=== PATIENT | male | born 1995 | race Caucasian/White ===

== ENCOUNTER 2018-03-13 11:38 | Emergency (ER) | payer BC, MEDICAID ==
[~2018-03-13] VITALS: Ht 653.8 cm; Wt 68.6 kg
[2018-03-13 11:46] VITALS: BP 125/68
[2018-03-13] MEDS ORDERED: AMOX-580 PO (12:36)
== END 2018-03-13 12:48 | disposition home or self-care (01) ==
LOC: ER 11:39
DX: K04.7 Periapical abscess without sinus (principal); Z56.0 Unemployment, unspecified; Z79.2 Long term (current) use of antibiotics
CPT/HCPCS: 99283

== ENCOUNTER 2019-01-03 01:24 | Emergency (ER) | payer MEDICAID, OTHER ==
[~2019-01-03] VITALS: Ht 182.9 cm; Wt 70.0 kg
[2019-01-03 01:46] VITALS: BP 119/61
[2019-01-03 02:25] LABS: CLARITY,URINE CLOUDY (Clear); COLOR,URINE YELLOW (Yellow); GLUCOSE, URINE NEGATIVE (Neg); KETONES,URINE NEGATIVE (Neg); LEUKOCYTE ESTERASE ,URINE NEGATIVE (Neg); NITRITES, URINE NEGATIVE (Neg); OCCULT BLOOD,URINE LARGE (Neg); PROTEIN,URINE NEGATIVE (Neg); UROBILINOGEN,URINE 0.2 E.U/dL (0.2-1.0)
[2019-01-03 02:28] LABS: UA COLLECTION TYPE VOIDED
[2019-01-03 02:43] LABS: BACTERIA,URINE FEW /HPF (Neg); RBC,URINE TNTC /HPF (0-2); SQUAMOUS EPITHELIAL CELL,UR FEW /LPF (FEW); WBC,URINE 0-4 /HPF (0-4)
== END 2019-01-03 03:29 | disposition home or self-care (01) ==
LOC: ER 01:24
DX: R31.9 Hematuria, unspecified (principal); Z56.0 Unemployment, unspecified
CPT/HCPCS: 81001; 99283

== ENCOUNTER 2021-03-09 11:08 | Emergency (ER) | payer MEDICAID ==
[~2021-03-09] VITALS: Ht 185.4 cm; Wt 71.5 kg
[2021-03-09 11:14] VITALS: BP 121/71
[2021-03-09] MEDS ORDERED: azithromycin 250mg tablet PO ONE (12:10)
[2021-03-09] MEDS ORDERED: CefTRIAXone 1000mg IM Kit (w/lidocaine diluent) IM ONE (12:10)
[2021-03-09 12:41] LABS: CLARITY,URINE CLOUDY (Clear); COLOR,URINE YELLOW (Yellow); GLUCOSE, URINE NEGATIVE (Neg); KETONES,URINE NEGATIVE (Neg); LEUKOCYTE ESTERASE ,URINE MODERATE (Neg); NITRITES, URINE NEGATIVE (Neg); OCCULT BLOOD,URINE TRACE-INTACT (Neg); PROTEIN,URINE NEGATIVE (Neg); UA COLLECTION TYPE VOIDED; UROBILINOGEN,URINE 0.2 E.U/dL (0.2-1.0)
[2021-03-09 12:58] LABS: WBC,URINE 50-100 /HPF (0-4)
[2021-03-09 13:00] LABS: AMORPHOUS PHOSPHATES 2+; BACTERIA,URINE 2+ /HPF (Neg)
[2021-03-09 13:01] LABS: MUCUS STRANDS FEW /LPF (Neg); RBC,URINE 0-2 /HPF (0-2); SQUAMOUS EPITHELIAL CELL,UR NONE SEEN /LPF (FEW); WBC CLUMPS,URINE MANY /HPF (NEGATIVE)
== END 2021-03-09 12:35 | disposition home or self-care (01) ==
LOC: ER 11:08
DX: A64 Unspecified sexually transmitted disease (principal); R30.9 Painful micturition, unspecified; R36.9 Urethral discharge, unspecified; Z72.89 Other problems related to lifestyle; Z56.0 Unemployment, unspecified
CPT/HCPCS: 36415; 81001; 87088; 87491; 87591; 96372; 99283; J0696